=== PATIENT | male | born 1960 | race Caucasian/White ===

== ENCOUNTER → 2017-01-29 | Outpatient (CLI) | payer MEDICARE, OTHER ==
[~2017-01-29] MED LIST: DESYREL 50MG50 MG PO; INDERAL 10MG10 MG PO; KADIAN100 MG PO; LOPID PO; LORTAB 10/500 51 TAB PO; MORPHINE SULFAT30 M5 PO; NEXIUM PO; NORCO 325 MG-101 TAB PO; PRILOTC PO; SYNTHROID 0.0.025 MG PO; SYNTHROID PO; VALIUM 10MG10 MG/TAB PO; XANAX .25M0.25 MG/TA PO; ZOCOR; ZOLOFT 100MG100 MG PO; ZOLOFT 25MG25 MG PO
== END ==
LOC: MHCPAIN 10:33
DX: G89.29 Other chronic pain (principal); M54.12 Radiculopathy, cervical region; M47.812 Spondylosis without myelopathy or radiculopathy, cervical region; F17.210 Nicotine dependence, cigarettes, uncomplicated
CPT/HCPCS: G0463

== ENCOUNTER → 2017-01-31 | Outpatient (CLI) | payer MEDICARE, OTHER | LOC: MHCPAIN 12:00 | DX: M50.90 Cervical disc disorder, unspecified, unspecified cervical region (principal) | CPT/HCPCS: J1100; Q9967 ==

== ENCOUNTER 2017-02-21 14:04 | Outpatient (RCR) | payer MEDICARE | END 2017-05-22 | LOC: MKS.ESL.PT | DX: M47.812 Spondylosis without myelopathy or radiculopathy, cervical region (principal); G54.2 Cervical root disorders, not elsewhere classified | CPT/HCPCS: G8990-GP; G8991-GP ==

== ENCOUNTER → 2017-03-26 | Outpatient (CLI) | payer MEDICARE | LOC: MHCPAIN 11:23 | DX: G89.29 Other chronic pain (principal); M50.123 Cervical disc disorder at C6-C7 level with radiculopathy; F17.210 Nicotine dependence, cigarettes, uncomplicated | CPT/HCPCS: G0463; J1100; Q9967 ==

== ENCOUNTER → 2017-03-28 | Outpatient (CLI) | payer MEDICARE | LOC: MHCPAIN 09:48 | DX: M50.123 Cervical disc disorder at C6-C7 level with radiculopathy (principal) | CPT/HCPCS: J1100; Q9967 ==

== ENCOUNTER → 2017-04-22 | Outpatient (CLI) | payer MEDICARE | LOC: MHCPAIN 11:02 | DX: G89.29 Other chronic pain (principal); M47.22 Other spondylosis with radiculopathy, cervical region; F17.210 Nicotine dependence, cigarettes, uncomplicated | CPT/HCPCS: G0463 ==

== ENCOUNTER → 2017-06-21 | Outpatient (CLI) | payer MEDICARE | LOC: MHCPAIN 07:44 | DX: G89.29 Other chronic pain (principal); M50.123 Cervical disc disorder at C6-C7 level with radiculopathy; F17.210 Nicotine dependence, cigarettes, uncomplicated | CPT/HCPCS: G0463 ==

== ENCOUNTER → 2017-07-17 | Outpatient (CLI) | payer MEDICARE | LOC: MHCPAIN 10:52 | DX: G89.29 Other chronic pain (principal); M50.122 Cervical disc disorder at C5-C6 level with radiculopathy; F17.210 Nicotine dependence, cigarettes, uncomplicated | CPT/HCPCS: G0463 ==

== ENCOUNTER → 2017-08-14 | Outpatient (CLI) | payer MEDICARE | LOC: MHCPAIN 10:51 | DX: G89.29 Other chronic pain (principal); M50.123 Cervical disc disorder at C6-C7 level with radiculopathy; F17.210 Nicotine dependence, cigarettes, uncomplicated | CPT/HCPCS: G0463 ==

== ENCOUNTER → 2017-09-16 | Outpatient (CLI) | payer MEDICARE | LOC: MHCPAIN 11:00 | DX: G89.29 Other chronic pain (principal); M50.122 Cervical disc disorder at C5-C6 level with radiculopathy; F17.210 Nicotine dependence, cigarettes, uncomplicated | CPT/HCPCS: G0463 ==

== ENCOUNTER → 2017-10-18 | Outpatient (CLI) | payer MEDICARE | LOC: MHCPAIN 09:12 | DX: G89.29 Other chronic pain (principal); M50.90 Cervical disc disorder, unspecified, unspecified cervical region; M54.12 Radiculopathy, cervical region | CPT/HCPCS: G0463 ==

== ENCOUNTER → 2017-11-12 | Outpatient (CLI) | payer MEDICARE | LOC: MHCPAIN 11:10 | DX: G89.29 Other chronic pain (principal); M50.90 Cervical disc disorder, unspecified, unspecified cervical region; M54.12 Radiculopathy, cervical region | CPT/HCPCS: G0463 ==

== ENCOUNTER → 2017-12-11 | Outpatient (CLI) | payer MEDICARE | LOC: MHCPAIN 11:03 | DX: G89.29 Other chronic pain (principal); M50.90 Cervical disc disorder, unspecified, unspecified cervical region; M54.12 Radiculopathy, cervical region | CPT/HCPCS: G0463 ==

== ENCOUNTER → 2018-01-15 | Outpatient (CLI) | payer MEDICARE | LOC: MHCPAIN 15:11 | DX: G89.29 Other chronic pain (principal); M50.90 Cervical disc disorder, unspecified, unspecified cervical region; M54.12 Radiculopathy, cervical region | CPT/HCPCS: G0463 ==

== ENCOUNTER → 2018-02-17 | Outpatient (CLI) | payer MEDICARE | LOC: MHCPAIN 15:21 | DX: G89.29 Other chronic pain (principal); M50.90 Cervical disc disorder, unspecified, unspecified cervical region; M54.12 Radiculopathy, cervical region; M54.81 Occipital neuralgia; R51 Headache | CPT/HCPCS: G0463 ==

== ENCOUNTER → 2018-05-20 | Outpatient (CLI) | payer MEDICARE | LOC: MHCPAIN 12:56 | DX: G89.29 Other chronic pain (principal); M50.90 Cervical disc disorder, unspecified, unspecified cervical region; M54.12 Radiculopathy, cervical region; M54.81 Occipital neuralgia; R51 Headache | CPT/HCPCS: G0463 ==

== ENCOUNTER → 2018-07-16 | Outpatient (CLI) | payer MEDICARE | LOC: MHCPAIN 13:00 | DX: G89.29 Other chronic pain (principal); M47.817 Spondylosis without myelopathy or radiculopathy, lumbosacral region; M53.3 Sacrococcygeal disorders, not elsewhere classified; M96.1 Postlaminectomy syndrome, not elsewhere classified; M50.90 Cervical disc disorder, unspecified, unspecified cervical region; M54.12 Radiculopathy, cervical region | CPT/HCPCS: G0463 ==

== ENCOUNTER → 2018-09-16 | Outpatient (CLI) | payer MEDICARE | LOC: MHCPAIN 13:56 | DX: G89.29 Other chronic pain (principal); M47.817 Spondylosis without myelopathy or radiculopathy, lumbosacral region; M54.16 Radiculopathy, lumbar region; M53.3 Sacrococcygeal disorders, not elsewhere classified; M96.1 Postlaminectomy syndrome, not elsewhere classified; M54.81 Occipital neuralgia; M50.90 Cervical disc disorder, unspecified, unspecified cervical region; M54.12 Radiculopathy, cervical region; R51 Headache | CPT/HCPCS: G0463 ==

== ENCOUNTER → 2018-12-10 | Outpatient (CLI) | payer MEDICARE | LOC: MHCPAIN 13:25 | DX: G89.29 Other chronic pain (principal); M47.817 Spondylosis without myelopathy or radiculopathy, lumbosacral region; M54.16 Radiculopathy, lumbar region; M53.3 Sacrococcygeal disorders, not elsewhere classified; M96.1 Postlaminectomy syndrome, not elsewhere classified; M54.81 Occipital neuralgia; M50.90 Cervical disc disorder, unspecified, unspecified cervical region; M54.12 Radiculopathy, cervical region; R51 Headache | CPT/HCPCS: G0463 ==

== ENCOUNTER → 2019-03-10 | Outpatient (CLI) | payer MEDICARE | LOC: MHCPAIN 13:02 | DX: G89.29 Other chronic pain (principal); M47.817 Spondylosis without myelopathy or radiculopathy, lumbosacral region; M54.16 Radiculopathy, lumbar region; M53.3 Sacrococcygeal disorders, not elsewhere classified; M96.1 Postlaminectomy syndrome, not elsewhere classified | CPT/HCPCS: G0463 ==

== ENCOUNTER → 2019-06-09 | Outpatient (CLI) | payer MEDICARE | LOC: MHCPAIN 13:30 | DX: G89.29 Other chronic pain (principal); M53.3 Sacrococcygeal disorders, not elsewhere classified; M96.1 Postlaminectomy syndrome, not elsewhere classified; M50.90 Cervical disc disorder, unspecified, unspecified cervical region; M54.12 Radiculopathy, cervical region | CPT/HCPCS: G0463 ==

== ENCOUNTER → 2019-09-09 | Outpatient (CLI) | payer MEDICARE | LOC: MHCPAIN 10:22 | DX: M54.12 Radiculopathy, cervical region (principal); M47.812 Spondylosis without myelopathy or radiculopathy, cervical region | CPT/HCPCS: G0463 ==

== ENCOUNTER → 2020-02-24 | Outpatient (CLI) | payer MEDICARE | LOC: MHCPAIN 11:11 | DX: M47.812 Spondylosis without myelopathy or radiculopathy, cervical region (principal); M54.2 Cervicalgia; M54.5 Low back pain; G89.29 Other chronic pain | CPT/HCPCS: G0463 ==

== ENCOUNTER → 2020-05-25 | Outpatient (CLI) | payer MEDICARE | LOC: MHCPAIN 12:57 | DX: M47.812 Spondylosis without myelopathy or radiculopathy, cervical region (principal); M54.2 Cervicalgia; M54.5 Low back pain; G89.29 Other chronic pain | CPT/HCPCS: G0463 ==

== ENCOUNTER → 2020-09-06 | Outpatient (CLI) | payer MEDICARE | LOC: MHCPAIN 10:58 | DX: M47.812 Spondylosis without myelopathy or radiculopathy, cervical region (principal); M96.1 Postlaminectomy syndrome, not elsewhere classified; M54.5 Low back pain; M79.2 Neuralgia and neuritis, unspecified | CPT/HCPCS: G0463 ==

== ENCOUNTER → 2020-12-06 | Outpatient (CLI) | payer MEDICARE | LOC: MHCPAIN 11:05 | DX: M47.812 Spondylosis without myelopathy or radiculopathy, cervical region (principal); M54.2 Cervicalgia; M54.5 Low back pain; M79.2 Neuralgia and neuritis, unspecified | CPT/HCPCS: G0463 ==

== ENCOUNTER → 2021-03-07 | Outpatient (CLI) | payer MEDICARE | LOC: MHCPAIN 11:02 | DX: M47.812 Spondylosis without myelopathy or radiculopathy, cervical region (principal); M79.2 Neuralgia and neuritis, unspecified; M54.2 Cervicalgia; M54.5 Low back pain | CPT/HCPCS: G0463 ==

== ENCOUNTER → 2021-06-06 | Outpatient (CLI) | payer MEDICARE | LOC: MHCPAIN 11:14 | DX: M54.2 Cervicalgia (principal); M47.812 Spondylosis without myelopathy or radiculopathy, cervical region; M54.50 Low back pain, unspecified; M79.2 Neuralgia and neuritis, unspecified; G89.29 Other chronic pain | CPT/HCPCS: G0463 ==

== ENCOUNTER → 2021-09-04 | Outpatient (CLI) | payer MEDICARE | LOC: MHCPAIN 08-08 11:12 | DX: M54.50 Low back pain, unspecified (principal); M54.2 Cervicalgia; M53.3 Sacrococcygeal disorders, not elsewhere classified | CPT/HCPCS: G0463 ==

== ENCOUNTER → 2021-11-29 | Outpatient (CLI) | payer MEDICARE | LOC: MHCPAIN 09:43 | DX: M47.812 Spondylosis without myelopathy or radiculopathy, cervical region (principal); M79.2 Neuralgia and neuritis, unspecified; M54.2 Cervicalgia | CPT/HCPCS: G0463 ==

== ENCOUNTER → 2022-02-28 | Outpatient (CLI) | payer MEDICARE | LOC: MHCPAIN 10:46 | DX: M54.2 Cervicalgia (principal); M54.6 Pain in thoracic spine; M54.50 Low back pain, unspecified; M79.18 Myalgia, other site | CPT/HCPCS: G0463 ==

== ENCOUNTER → 2022-03-13 | Outpatient (CLI) | payer MEDICARE | LOC: MHCPAIN 11:06 | DX: M79.18 Myalgia, other site (principal); M25.511 Pain in right shoulder; M54.6 Pain in thoracic spine | CPT/HCPCS: J1040 ==

== ENCOUNTER → 2022-11-21 | Outpatient (CLI) | payer MEDICARE | LOC: MHCPAIN 10:52 | DX: M47.812 Spondylosis without myelopathy or radiculopathy, cervical region (principal); M54.2 Cervicalgia; M54.50 Low back pain, unspecified | CPT/HCPCS: G0463 ==

== ENCOUNTER → 2023-05-30 | Outpatient (CLI) | payer MEDICARE | LOC: MHCPAIN 12:09 | DX: M47.812 Spondylosis without myelopathy or radiculopathy, cervical region (principal); M54.12 Radiculopathy, cervical region | CPT/HCPCS: J1100; Q9967 ==

== ENCOUNTER → 2023-06-19 | Outpatient (CLI) | payer MEDICARE | LOC: MHCPAIN 09:51 | DX: M54.2 Cervicalgia (principal); M47.812 Spondylosis without myelopathy or radiculopathy, cervical region; M79.2 Neuralgia and neuritis, unspecified | CPT/HCPCS: G0463 ==

== ENCOUNTER → 2023-06-19 | Outpatient (CLI) | payer MEDICARE | LOC: COL.RAD 10:56 | DX: M47.22 Other spondylosis with radiculopathy, cervical region (principal) ==